=== PATIENT | female | born 1990 | race Two or more races ===

== ENCOUNTER 2016-05-26 03:38 | Inpatient (IN) | payer MEDICAID ==
[2016-05-26 03:59] VITALS: BMI 25.4
[2016-05-26] MEDS ORDERED: Vaccine Screening Complete SCH ×2 (04:00→06:00)
[2016-05-26] MEDS ORDERED: LR 500 ML IV PRN (04:07)
[2016-05-26] MEDS ORDERED: OXYTOCIN 1,000 ML IV ONE ×2 (04:11→05:13)
[2016-05-26] MEDS ORDERED: LIDOCAINE 1% 30 ML VIAL (PRESERVATIVE FREE) ONE (04:11)
[2016-05-26 04:23] LABS: AUTOMATED EOSINOPHIL 0.9 % (0-5); AUTOMATED LYMPH 29.3 % (17-44); AUTOMATED MONOCYTE 6.9 % (3-10); AUTOMATED NEUTROPHIL 61.9 % (45-76); MPV 10.5 fL (7.4-10.4)
--- NOTE | 2016-05-26 04:25 | HISTPHYS ---
- HISTORY OF PRESENT ILLNESS Estimated Due Date: 05/28/16 Gestational Age: 39 : 5 Para: 3 Patient Presents to:: Labor & Delivery Presents for:: Contractions Current : Other Complications (limited pernatal care) - REVIEW OF SYSTEMS ROS Negative Except As Marked: Yes ROS Negative except as marked Reports/Denies: Reports: Movement. Denies: Leaking Fluid, Shortness of Breath, Fever, Chills, Chest Pain, Cardiovascular Complaints, Respiratory Complaints, GI Comlaints Pain: Reports: Abdominal - ALLERGIES Allergies Allergy/AdvReac Type Severity Reaction Status Date / Time No Known Allergies Allergy Verified 05/26/16 03:53 - PAST MEDICAL HISTORY Reports: No Significant History - PAST SURGICAL HISTORY Reports: Cholecystectomy - FAMILY HISTORY Family History: Noncontributory - SOCIAL HISTORY Smoking Status: Never smoker Social History: Denies: Amphetamine Use, Alcohol Use, Barbiturate Use, Benzodiazipine Use - GENITOURINARY HISTORY Gynecologic History: Reports: None HX : 5 Para: 3 Live Deliveries (# of pregnancies resulting in a live ): 3 1 Weight: 6 3 - PHYSICAL EXAM Vital Signs:: Temperature: 98.1 F (05/26/16 03:54) HR: 71 (05/26/16 03:54) RR: 20 (05/26/16 03:54) BP: 114/73 (05/26/16 03:54) Pulse Ox: () GENERAL: Alert, Oriented, No Acute Distress ABDOMEN: Gravid, Non-Tender GENITOURINARY: Normal EXTERMITIES: Moves All Extremeties. negative: Edema LEXIS'S SIGN: negative: Bilateral Dilation (cm): 9 Effacement (%): 100 Station: -1 Heart Rate: 130 Category I Contractions: Regular Membranes: AROM Amniotic Fluid: Meconium Stained - ASSESSMENT (ACTIVE PROBLEMS) (1) 39 weeks gestation of Acute Z3A.39 - 39 WEEKS GESTATION OF (2) Active labor at term Acute [id number] - - PLAN Admit, Consent, Monitoring, IV Hydration, Labs
--- NOTE | 2016-05-26 04:51 | OBDELNOTE ---
Delivery Note - Problem/Diagnosis (1) 39 weeks gestation of Status: Acute (2) Active labor at term Status: Acute (3) Vaginal delivery Status: Acute (4) Single live Status: Acute - Admitting Diagnosis Reason for Visit: Contractions Admission Date: 05/26/16 Admission time: 03:38 Gestational Age: 39 - Procedures Procedure(s): Non-Stress Test Labor Anesthesia/Analgesia: None Date: 05/26/16 Time: 04:35 Spontaneous Vaginal Delivery Presentation: Vertex Episiotomy: None Laceration: None EBL: 400 Fluid: Light Meconium Placenta: Spontaneous Description: Normal Cord: 3 Vessels. Denies: Nuchal Cord, True Knot - Procedures Procedures: None - Data Order: Villavicencio Sex: Female Weight: 3.294 kg (1min): 9 (5min): 9 Bertrand Complications: No Complications Bertrand to:: LDRP/Mother's Room - /Operative Complications /Op Complications: None Discharge Planning - REASON FOR ADMISSION Patient Presents to:: Labor & Delivery Reason for Visit: Contractions - DISCHARGE INSTRUCTIONS Prescriptions: Hydrocodone Bit/Acetaminophen [[place] 5-325 Tablet] 1 - 2 tab PO Q4H PRN #30 tab PRN Reason: Pain Ibuprofen Tablet [Motrin] 800 mg PO TID #30 tab
--- NOTE | 2016-05-26 04:52 | PCM.DCS92 ---
<Colette Keys - Last Filed: 05/26/16 04:52> - Primary/Secondary Discharge Diagnoses (1) 39 weeks gestation of Acute Z3A.39 - 39 WEEKS GESTATION OF (2) Active labor at term Acute [id number] - (3) Vaginal delivery Acute O80 - ENCOUNTER FOR FULL-TERM UNCOMPLICATED DELIVERY (4) Single live Acute Z37.0 - SINGLE LIVE - HOSPITAL COURSE /Op Complications: None - DISCHARGE INSTRUCTIONS Discharge Disposition: Home Discharge Condition: Good Cognitive Discharge Status: Unimpaired Fuctional Discharge Status: Independent Patient Leaving with Prescriptions?: Yes Home Medications/ New Prescriptions: New Hydrocodone Bit/Acetaminophen [[place] 5-325 Tablet] 1 - 2 tab PO Q4H PRN #30 tab PRN Reason: Pain Ibuprofen Tablet [Motrin] 800 mg PO TID #30 tab No Action Vits W-Ca,Fe,FA(<1Mg) [] 1 each PO DAILY Referrals: Colette Keys DO [Staff Physician] - Six Weeks (CALL THE OFFICE TO SCHEDULE FOLLOW UP APPOINTMENT) - Diet Diet at Discharge: Regular - Activity Activity: No Heavy Lifting, Pelvic Rest, No Driving Do not lift more than_pounds: 15 For:: 2 weeks No Driving for: 2 weeks - Instructions Call Physician for: Sudden/Sever Chest Pain, Foul Smelling Discharge, Pain/ Redness in Calf/Leg, Soaking Pad in 1 hr, Temperature Above 100.4 - Incision Incision, Lacerations, or Tears: No - DC Summary Notes Discharge Medications: *See "Discharge Medication List" for a complete list of Home Medications and Discharge Medications.* Obstetric Hospital Course - Admitting Diagnosis Reason for Visit: Contractions Admission Date: 05/26/16 Admission time: 03:38 Gestational Age: 39 - Procedures Procedure(s): Non-Stress Test Labor Anesthesia/Analgesia: None Date: 05/26/16 Time: 04:35 Spontaneous Vaginal Delivery Presentation: Vertex Episiotomy: None Laceration: None EBL: 400 Fluid: Light Meconium Placenta: Spontaneous Description: Normal Cord: 3 Vessels. Denies: Nuchal Cord, True Knot - Procedures Procedures: None - Data Order: Villavicencio Sex: Female Weight: 3.294 kg (1min): 9 (5min): 9 Delta Complications: No Complications to:: LDRP/Mother's Room - /Operative Complications /Op Complications: None <Jacquelyn Santillan - Last Filed: 05/28/16 09:12> - DC Summary Notes Discharge Medications: *See "Discharge Medication List" for a complete list of Home Medications and Discharge Medications.*
[2016-05-26] MEDS ORDERED: LR 1,000 ML IV SCH ×2 (05:00→11:25)
[2016-05-26] MEDS ORDERED: Pharmacy Order Set Alert SCH (05:13)
[2016-05-26] MEDS ORDERED: OXYCODONE HCL 5 MG TABLET PO PRN (05:13)
[2016-05-26] MEDS ORDERED: LANOLIN OINTMENT 0.25 OZ TUBE TOP PRN (05:13)
[2016-05-26] MEDS ORDERED: ACETAMINOPHEN 325 MG/TAB TABLET PO PRN (05:13)
[2016-05-26] MEDS: IBUPROFEN 800 MG TAB PO SCH ×4 (05:40→23:17)
--- NOTE | 2016-05-26 09:44 | OBGYNPROG ---
- Subjective Post Day: 0 - Objective Vital Signs: Last Vital Signs Temp 98.4 F 05/26/16 04:50 Pulse 65 05/26/16 07:35 Resp 16 05/26/16 07:35 BP 101/57 L 05/26/16 07:35 Pulse Ox H&H Results 05/26/16 04:10 Hgb 13.0 Hct 38.3 General: Alert, Oriented, No Acute Distress ABDOMEN: Non-Distended, Non-Tender, Soft Fundus: At Umbilicus MUSCULOSKELETAL: Normal EXTERMITIES: Moves All Extremeties LEXIS'S SIGN: Denies: Bilateral OBGYN Progress Note - ASSESSMENT (1) care following vaginal delivery Status: Acute Code(s): Z39.2 - ENCOUNTER FOR ROUTINE FOLLOW-UP - PLAN Routine Care
[2016-05-26] MEDS: VITAMINS,PRENATAL TABLET PO SCH (12:20)
[2016-05-27] MEDS: IBUPROFEN 800 MG TAB PO SCH ×4 (06:18→23:51)
[2016-05-27 06:19] VITALS: TEMP 97.6
[2016-05-27] MEDS ORDERED: TETANUS-DIPTHERIA-ACEL PERTUSS 0.5 ML SYR IM ONE (08:00)
[2016-05-27] MEDS ORDERED: MEASLES,MUMPS,RUBELLA VACCINE SQ ONE (08:00)
[2016-05-27] MEDS ORDERED: VARICELLA VIRUS VACCINE VIAL SQ ONE (08:00)
--- NOTE | 2016-05-27 08:27 | OBGYNPROG ---
- Subjective Post Day: 1 Reports: Ambulating, Out of Bed, Tolerating Regular Diet, Voiding Freely. Denies: Complaints Pain: Reports: None - Objective Vital Signs: Temperature: 97.6 F (05/27/16 06:19) HR: 67 (05/27/16 06:19) RR: 20 (05/27/16 06:19) BP: 112/61 (05/27/16 06:19) Pulse Ox: () Laboratory Results - last 24 hr 05/26/16 05/26/16 05/27/16 04:10 04:10 06:51 Hgb 11.2 L D Hct 33.7 L RPR Nonreactive Hep Bs Antigen Negative Rubella Immunity Screen 3.82 VZV IgG Antibody 1821 General: Alert, Oriented, No Acute Distress HEENT: Normal Cardiovascular/Chest: Normal ABDOMEN: Soft Bladder: Voiding & Emptying Perineum: Intact MUSCULOSKELETAL: Normal EXTERMITIES: Moves All Extremeties. Denies: Edema OBGYN Progress Note - PLAN Routine Care
[2016-05-27] MEDS: VITAMINS,PRENATAL TABLET PO SCH (11:44)
[2016-05-28 06:03] VITALS: BP 90/54; PULSE 56
[2016-05-28] MEDS: IBUPROFEN 800 MG TAB PO SCH (06:04)
--- NOTE | 2016-05-28 09:12 | OBGYNPROG ---
- Subjective Post Day: 2 Reports: Ambulating, Out of Bed, Tolerating Regular Diet, Voiding Freely. Denies: Complaints Pain: Reports: None - Objective Vital Signs: Temperature: 97.6 F (05/28/16 06:03) HR: 56 (05/28/16 06:03) RR: 16 (05/28/16 06:03) BP: 90/54 (05/28/16 06:03) Pulse Ox: () General: Alert, Oriented, No Acute Distress HEENT: Normal Cardiovascular/Chest: Normal Respiratory: Normal - CTA ABDOMEN: Soft MUSCULOSKELETAL: Normal EXTERMITIES: Moves All Extremeties OBGYN Progress Note - PLAN Routine Care, Discharge
[2016-05-28 09:36] LABS: CHLAMY BY NUCLEIC ACID AMP Negative (Negative)
[2016-05-29 07:58] LABS: GC BY NUCLEIC ACID AMP Negative (Negative)
== END 2016-05-28 11:10 | disposition home or self-care (01) | DRG 775 ==
LOC: LD 03:38 → MASU 04:08
PROVIDERS: ADMIT Obstetrics & Gynecology; ATTEND Obstetrics & Gynecology
PROC: 10E0XZZ Delivery of Products of Conception, External Approach (ICD-10-PCS; principal; 2016-05-26)
PROC: 10907ZC Drainage of Amniotic Fluid, Therapeutic from Products of Conception, Via Natural or Artificial Opening (ICD-10-PCS; 2016-05-26)
DX: O77.0 Labor and delivery complicated by meconium in amniotic fluid (principal); Z37.0 Single live birth; Z3A.39 39 weeks gestation of pregnancy
CPT/HCPCS: 59400; 81002; 85014; 85018; 85025; 86592; 86703; 86762; 86787; 86900; 86901; 87340; 87491; 87591; 90716; 96361; 96365; 96366; J2001; J2590; J3490